=== PATIENT | female | born 1960 | race Caucasian/White ===

== ENCOUNTER 2021-04-27 10:06 | Emergency (ER) | payer OTHER ==
[~2021-04-27] VITALS: Ht 157.5 cm; Wt 65.3 kg
[2021-04-27] MEDS ORDERED: KEPPRA500 MG PO (10:23)
[2021-04-27] MEDS ORDERED: NORVASC10 MG PO (10:24)
[2021-04-27] MEDS ORDERED: PLAVIX75 MG PO (10:24)
[2021-04-27] MEDS ORDERED: HYZAAR 100-251 EACH PO (10:24)
[2021-04-27] MEDS ORDERED: LIPITOR80 MG (10:24)
== END 2021-04-27 15:28 | disposition home or self-care (01) ==
LOC: ER 10:06
DX: I69.351 Hemiplegia and hemiparesis following cerebral infarction affecting right dominant side (principal); I10 Essential (primary) hypertension; G45.9 Transient cerebral ischemic attack, unspecified; R20.0 Anesthesia of skin; Z03.818 Encounter for observation for suspected exposure to other biological agents ruled out